=== PATIENT | female | born 1960 | race Caucasian/White ===

== ENCOUNTER 2018-05-13 08:49 | Outpatient (CLI) | payer OTHER ==
[~2018-05-13 08:49] MED LIST: AMOX1TAB5 PO; METFORMIN HCL500 MG; ZANTAC300 MG PO
== END 2018-05-13 17:00 | disposition home or self-care (01) ==
LOC: TOM 08:49
DX: K56.600 Partial intestinal obstruction, unspecified as to cause (principal); K57.30 Diverticulosis of large intestine without perforation or abscess without bleeding

== ENCOUNTER 2019-03-10 15:14 | Outpatient (CLI) | payer OTHER | END 2019-03-10 17:00 | disposition home or self-care (01) | LOC: TOM 15:14 | DX: I69.30 Unspecified sequelae of cerebral infarction (principal) ==

== ENCOUNTER 2019-12-09 13:01 | Outpatient (CLI) | payer OTHER | END 2019-12-09 13:14 | disposition home or self-care (01) | LOC: MRI 13:01 | DX: M47.12 Other spondylosis with myelopathy, cervical region (principal); M50.10 Cervical disc disorder with radiculopathy, unspecified cervical region | CPT/HCPCS: 72141 ==

== ENCOUNTER 2021-10-10 08:00 | Outpatient (CLI) | payer OTHER | END 2021-10-10 08:30 | disposition home or self-care (01) | LOC: PPH VACUNA 08:00 | PROVIDERS: ATTEND Emergency Medicine Pediatric Emergency Medicine | DX: Z23 Encounter for immunization (principal) ==

== ENCOUNTER 2022-02-22 10:15 | Outpatient (CLI) | payer OTHER | END 2022-02-22 10:40 | disposition home or self-care (01) | LOC: PPH VACUNA 10:15 | PROVIDERS: ATTEND Emergency Medicine Pediatric Emergency Medicine | DX: Z23 Encounter for immunization (principal) ==

== ENCOUNTER 2023-03-15 09:31 | Outpatient (CLI) | payer OTHER | END 2023-03-15 09:45 | disposition home or self-care (01) | LOC: MRI 09:31 | PROVIDERS: ATTEND Specialist | DX: M48.00 Spinal stenosis, site unspecified (principal); G63 Polyneuropathy in diseases classified elsewhere; G95.20 Unspecified cord compression | CPT/HCPCS: 72148 ==